=== PATIENT | female | born 2000 | race African-American/Black ===

== ENCOUNTER 2023-08-10 10:56 | Observation (INO) | payer OTHER, SELFPAY ==
[2023-08-10] VITALS (8 sets, daily range): BP systolic 103–118; BP diastolic 61–70; PULSE 72–89; RESP 16; TEMP 36.5–36.6; BMI 28.5
--- NOTE | 2023-08-10 11:20 | OBADM ---
This patient, Aury Little, admitted to the OB room 113 for observation. Patient/family oriented to hospital policies and general routines including ID bracelet, bed and alarms, visiting hours, pain management, procedures, bathroom and other care routines, personal items, smoking policy, room service/diet, and visiting hours. Patient/Family are encouraged to report perceived risks to care and to ask questions if they do not understand what they are told or what they should do.
[2023-08-10 12:38] LABS: Appearance Urine Clear (Clear); Bacteria Urine None Seen /hpf; Bilirubin Urine Negative (Negative); Blood Urine Negative (Negative); Color Urine Yellow (Yellow); Glucose Urine UA Negative (Negative); Ketones Urine 1+ mg/dL (Negative); Leukocyte Esterase Ur 1+ LEU/UL (Negative); Need Manual Microscopic Reviewed; Nitrate Urine Negative (Negative); Non Pathogenic Casts 0-2; Protein Urine Trace mg/dL (Negative); RBC Urine 0-2 /hpf (0-2); Specific Grav Ur 1.017 (1.001-1.035); Squamous Epithelial Cell Urine None seen /hpf (Few); WBC Urine 0-5 /hpf; pH Urine 7.5 (5.0-9.0)
[2023-08-10 12:49] LABS: Add Urine Microscopic? YES
--- NOTE | 2023-08-10 13:18 | PC.NURSE ---
Dr. Pulliam informed of this walk in pt at 37 wks arrival by ambulance (initially in police custody, but released as soon as pt was in room) with c/o upper abdominal sharp pain since yesterday, emesis and diarrhea x's 2 yesterday, still nauseated. Informed of UA results, reactive NST, irregular contractions, and pt has tolerated ice chips, applesauce, and irena crackers and requesting to eat. Order received to check cervix and if not in labor to discharge to home to follow up with her OB provider.
--- NOTE | 2023-08-10 13:42 | PC.NURSE ---
Pt waiting for a ride.
--- NOTE | 2023-08-10 17:00 | PC.NURSE ---
Pt informed that Dr. Denton stated that if her food stayed down she could be discharged to home. Pt states her upper abdomen hurts too much to go home. States it is improving. Currently rates her pain a 6; states it was a 10 earlier. Pt is dozing with the lights off in room. Pt had another small very soft stool.
--- NOTE | 2023-08-21 12:04 | PM.OBTRLD ---
OB - Triage/Final Diagnosis Visit Information Comments/Additional reasons for admission: I have assessed the risk for this patient, Aury Little, and determined that she would benefit from observation care. Evaluation Laboratory results: Laboratory Tests 08/10/23 12:01 Urine Color Yellow Urine Appearance Clear Urine pH 7.5 Ur Specific [place] 1.017 Urine Protein Trace Urine Glucose (UA) Negative Urine Ketones 1+ H Ur Blood (Man) Negative Urine Nitrate Negative Urine Bilirubin Negative Urine Urobilinogen 1.0 Add Ur Microanalysis Reviewed Leukocyte Esterase Rfl 1+ H Urine RBC 0-2 Urine WBC 0-5 Ur Squamous Epith Cells None seen Urine Bacteria None seen Urine Casts 0-2 Final Diagnosis (1) Abdominal pain affecting : Code(s): O26.899 - Other specified related conditions, unspecified trimester; R10.9 - Unspecified abdominal pain Status: Acute (2) related nausea, antepartum: Code(s): O26.899 - Other specified related conditions, unspecified trimester; R11.0 - Nausea Status: Acute
== END 2023-08-10 13:57 | disposition home or self-care (01) ==
PROVIDERS: Admitting Provider Obstetrics & Gynecology; Visit Provider Obstetrics & Gynecology
DX: O26.893 Other specified pregnancy related conditions, third trimester (principal); R10.9 Unspecified abdominal pain; R11.0 Nausea; Z3A.37 37 weeks gestation of pregnancy
CPT/HCPCS: 81001; G0378; G0379